=== PATIENT | female | born 1980 | race African-American/Black ===

== ENCOUNTER 2016-06-27 23:37 | Emergency (ER) | payer MEDICAID ==
[2016-06-28] MEDS ORDERED: DIPHENHYDRAMINE 50 MG/ML VIAL ONE (03:59)
[2016-06-28] MEDS ORDERED: METOCLOPRAMIDE 10 MG/2 ML VIAL ONE (03:59)
[2016-06-28] MEDS ORDERED: SODIUM CHLORIDE 0.9% 1,000 ML ONE (04:00)
[2016-06-28] MEDS ORDERED: KETOROLAC 30 MG/ML VIAL ONE (04:00)
== END 2016-06-28 06:28 | disposition home or self-care (01) ==
LOC: ER 23:37
DX: G43.009 Migraine without aura, not intractable, without status migrainosus (principal); F17.200 Nicotine dependence, unspecified, uncomplicated
CPT/HCPCS: 36415; 80053; 81001; 84439; 84443; 85025; 86403; 87088; 87804; 87880; 96361; 96374; 96375